=== PATIENT | female | born 2000 | race Caucasian/White ===

== ENCOUNTER 2022-05-08 09:16 | Outpatient (CLI) | payer BC, SELFPAY ==
--- NOTE | ~2022-05-08 | DEXA_ITS ---
Bone Density Report Name: LANE SMITH Age: 21 Sex: Female Ethnicity: White Date of : 2000 Indication: postmenopausal; prior fracture; Referring Provider: UNKNOWN, UNKNOWN Study: Bone densitometry was performed. Exam Date: May 08, 2022 Accession number: [id number] Bone Density: Region BMD T-score Z-score Classification AP Spine(L1-L4) 0.850 -1.8 Femoral Neck (Left) 0.626 -2.0 Total Hip (Left) 0.741 -1.7 Femoral Neck (Right) 0.643 -1.9 Total Hip (Right) 0.757 -1.5 Total Hip Mean 0.749 -1.6 World Health Organization criteria for BMD impression classify patients as: Normal (T-score at or above -1.0), Osteopenia (T-score between -1.0 and -2.5), or Osteoporosis (T-score at or below -2.5). Clinical Information Provided by Patient: Has had a low trauma fracture Has used the following medications: Vitamin D Patient maximum height was 61 Drinks caffeinated beverages Onset of menses at age 14 Number of children 0 Impression: The patient has risk factors, including: previous fracture. Discussion: BONE DENSITY IS ABOVE THE MINIMUM DESIRABLE LEVEL AT ALL SKELETAL SITES TESTED. This patient?s bone mineral density is above the minimum desirable level (T-score -1.0 or better) at all sites measured. The patient should follow a healthful lifestyle (good nutrition with adequate calcium and vitamin D, and appropriate weight-bearing exercise). Follow-Up: Consider repeating this study in 2 to 3 years to reassess this patient's status, or sooner if there is some new clinical indication. Reported by: MARYJANE on 05/08/2022 9:45:00 AM. Reviewed, dictated and finalized at location Rita [facility]KES
== END 2022-05-08 09:17 | disposition home or self-care (01) ==
DX: Q96.3 Mosaicism, 45, X/46, XX or XY (principal)
CPT/HCPCS: 77080